=== PATIENT | female | born 1980 | race Caucasian/White ===

== ENCOUNTER 2017-03-30 00:10 | Inpatient (IN) | payer BC ==
--- NOTE | 2017-03-29 21:58 | EDPHY ---
H & P Stated Complaint: general abdominal pain x 2 days Time Seen by Provider: 03/29/17 21:17 HPI/ROS: CHIEF COMPLAINT: Abdominal pain History by patient HISTORY OF PRESENT ILLNESS: 37-year-old otherwise healthy woman presents complaining of 2 days of upper and periumbilical abdominal pain which she describes as sharp and severe and crampy. However now it is constant. When it 1st began 2 days ago she had multiple episodes of vomiting followed by multiple episodes of watery, nonbloody diarrhea. She has also had associated fever. She does also complain of some pain in her low back. She had an IUD removed 2 weeks ago and a Depakote shot at that time and she has had ongoing vaginal bleeding. She denies any dysuria, urgency frequency or hematuria. Pain is worse when she moves around or changes position. She has been unable to eat because it makes things worse. She has no appetite. She denies any recent ill contacts. REVIEW OF SYSTEMS: As in HPI, and all other systems reviewed and are negative Source: Patient - Personal History LMP (Females 10-55): Now Current Tetanus/Diphtheria Vaccine: No Current Tetanus Diphtheria and Acellular Pertussis (TDAP): No - Medical/Surgical History Hx Asthma: No Hx Chronic Respiratory Disease: No Hx Diabetes: No Hx Cardiac Disease: No Hx Renal Disease: No Hx Cirrhosis: No Hx Alcoholism: No Hx HIV/AIDS: No Hx Splenectomy or Spleen Trauma: No Other PMH: no pmh - Social History Smoking Status: Former smoker - Physical Exam Exam: General Appearance: Alert, nontoxic-appearing. Eyes: Pupils equal and round no pallor or injection. ENT, Mouth: Mucous membranes moist. Respiratory: Normal, effort, lungs are clear to auscultation. No wheezes, rales or rhonchi. Cardiovascular: Regular rate and rhythm. S1, S2, no murmurs, gallops or rubs appreciated Gastrointestinal: bowel sounds present, Abdomen is soft and diffusely tender mostly in the right lower quadrant, no palpable mass masses, no peritoneal signs Back: Positive Right CVA tenderness, no bony tenderness Neurological: Awake, alert and oriented x 3, no pronator drift, normal gait, no pronator drift Skin: Warm and dry, no rashes. Musculoskeletal: No deformities or tenderness. Extremitie:s full range of motion, no edema Psychiatric: Patient has normal affect, there is no agitation. Constitutional: Initial Vital Signs Temperature (C) 37.5 C 03/29/17 21:10 Heart Rate 112 H 03/29/17 21:10 Respiratory Rate 18 03/29/17 21:10 Blood Pressure 129/79 H 03/29/17 21:10 O2 Sat (%) 98 03/29/17 21:10 O2 Delivery Mode Room Air Allergies/Adverse Reactions: No Known Allergies Allergy (Unverified 03/29/17 21:15) Home Medications: Medication Instructions Recorded NK [No Known Home Meds] 03/29/17 Medical Decision Making ED Course/Re-evaluation: 37-year-old woman presents with acute onset of abdominal pain, vomiting and diarrhea and now with persistent severe abdominal pain and tenderness and fever at home. Patient was given IV Zofran and Toradol with improvement in her symptoms but persistent tenderness on exam especially in the right lower quadrant and suprapubic area. Urinalysis showed blood consistent with patient being on her menses and no evidence of infection. She was not . Patient's white blood cell count was elevated at 26. Patient's sodium was low. Given her exam and elevated blood cell count was concerned about appendicitis or other intra-abdominal process and a CT abdomen pelvis was obtained. CT of the abdomen pelvis revealed a acute appendicitis with rupture and abscess. Patient was started on IV Unasyn. I discussed the case with the radiologist lead electrical controls engineer. I then discussed the case with Dr. Wero rodas on- call for general surgery who requested the patient be transferred to [facility] at [facility] for further evaluation. I also discussed the case with Dr. Cota in the [facility] Emergency Department. I discussed the diagnosis plan with the patient and her . They prefer to go by private car. She is hemodynamically stable. She will be transferred to [facility] Emergency Department for further evaluation and care. - Data Points Laboratory Results: Laboratory Results 03/29/17 21:38 03/29/17 21:38 03/29/17 03/29/17 03/29/17 21:38 21:38 21:20 WBC 26.16 10^3/uL H 10^3/uL (3.80-9.50) RBC 3.83 10^6/uL L 10^6/uL (4.18-5.33) Hgb 11.0 g/dL L g/dL (12.6-16.3) Hct 32.0 % L % (38.0-47.0) MCV 83.6 fL fL (81.5-99.8) MCH 28.7 pg pg (27.9-34.1) MCHC 34.4 g/dL g/dL (32.4-36.7) RDW 12.9 % % (11.5-15.2) Plt Count 418 10^3/uL H 10^3/uL (150-400) MPV 8.7 fL fL (8.7-11.7) Neut % (Auto) Not Reported Lymph % (Auto) Not Reported [place] % (Auto) Not Reported Eos % (Auto) Not Reported Baso % (Auto) Not Reported Nucleat RBC Rel Count 0.0 % % (0.0-0.2) Absolute Neuts (auto) Not Reported Absolute Lymphs (auto) Not Reported Absolute Monos (auto) Not Reported Absolute Eos (auto) Not Reported Absolute Basos (auto) Not Reported Absolute Nucleated RBC 0.00 10^3/uL 10^3/uL (0-0.01) Immature Gran % Not Reported Seg Neutrophils % 87 % % Band Neutrophils % 2 % % Lymphocytes % 6 % % Monocytes % 5 % % Immature Gran # Not Reported Absolute Seg Neuts 22.8 K/MM3 H K/MM3 (1.8-7) Absolute Band Neuts 0.5 K/MM3 K/MM3 (0-0.7) Absolute Lymphocytes 1.6 K/mm3 K/mm3 (1.0-4.8) Absolute Monocytes 1.3 K/mm3 H K/mm3 (0-0.8) Platelet Estimate INCREASED H (ADEQ) Sodium 132 mEq/L L mEq/L (134-144) Potassium 4.1 mEq/L mEq/L (3.5-5.2) Chloride 97 mEq/L mEq/L (97-110) Carbon Dioxide 25 mEq/l mEq/l (22-31) Anion Gap 10 mEq/L mEq/L (8-16) BUN 7 mg/dL mg/dL (7-23) Creatinine 0.6 mg/dL mg/dL (0.6-1.0) Estimated GFR > 60 Glucose 138 mg/dL H mg/dL (70-100) Calcium 9.0 mg/dL mg/dL (8.5-10.4) Total Bilirubin 0.7 mg/dL mg/dL (0.1-1.4) Conjugated Bilirubin 0.4 mg/dL mg/dL (0.0-0.5) Unconjugated Bilirubin 0.3 mg/dL mg/dL (0.0-1.1) AST 15 IU/L IU/L (14-46) ALT 27 IU/L IU/L (9-52) Alkaline Phosphatase 88 IU/L IU/L (38-126) Total Protein 6.4 g/dL g/dL (6.3-8.2) Albumin 3.3 g/dL L g/dL (3.5-5.0) Lipase 74 IU/L IU/L (23-300) Urine Color Urine Appearance Urine pH Ur Specific [place] Urine Protein Urine Ketones Urine Blood Urine Nitrate Urine Bilirubin Urine Urobilinogen Ur Leukocyte Esterase Urine RBC Urine WBC Ur Epithelial Cells Amorphous Sediment Urine Bacteria Hyaline Casts Urine Glucose Urine Test NEGATIVE 03/29/17 21:20 WBC RBC Hgb Hct MCV MCH MCHC RDW Plt Count MPV Neut % (Auto) Lymph % (Auto) [place] % (Auto) Eos % (Auto) Baso % (Auto) Nucleat RBC Rel Count Absolute Neuts (auto) Absolute Lymphs (auto) Absolute Monos (auto) Absolute Eos (auto) Absolute Basos (auto) Absolute Nucleated RBC Immature Gran % Seg Neutrophils % Band Neutrophils % Lymphocytes % Monocytes % Immature Gran # Absolute Seg Neuts Absolute Band Neuts Absolute Lymphocytes Absolute Monocytes Platelet Estimate Sodium Potassium Chloride Carbon Dioxide Anion Gap BUN Creatinine Estimated GFR Glucose Calcium Total Bilirubin Conjugated Bilirubin Unconjugated Bilirubin AST ALT Alkaline Phosphatase Total Protein Albumin Lipase Urine Color YELLOW Urine Appearance CLEAR Urine pH 6.0 (5.0-7.5) Ur Specific [place] 1.010 (1.002-1.030) Urine Protein 2+ H (NEGATIVE) Urine Ketones NEGATIVE (NEGATIVE) Urine Blood 3+ H (NEGATIVE) Urine Nitrate NEGATIVE (NEGATIVE) Urine Bilirubin NEGATIVE (NEGATIVE) Urine Urobilinogen 0.2 EU EU (0.2-1.0) Ur Leukocyte Esterase NEGATIVE (NEGATIVE) Urine RBC 50-182 /hpf H /hpf (0-3) Urine WBC 0-1 /hpf /hpf (0-3) Ur Epithelial Cells 2+ /lpf H /lpf (NONE-1+) Amorphous Sediment 2+ /hpf H /hpf (NONE-1+) Urine Bacteria TRACE /hpf H /hpf (NONE SEEN) Hyaline Casts 1-3 /lpf H /lpf (0-1) Urine Glucose NEGATIVE (NEGATIVE) Urine Test Medications Given: Ampicillin Sodium/Sulbactam (Sodium 3 gm/ Sodium Chloride) 100 mls @ 200 mls/ hr IV EDNOW ONE PRN Reason: Protocol Stop: 03/29/17 23:37 Last Admin: 03/29/17 23:14 Dose: 100 mls Discontinued Medications Sodium Chloride (Ns) 1,000 mls @ 0 mls/hr IV ONCE ONE PRN Reason: Wide Open Stop: 03/29/17 21:33 Last Admin: 03/29/17 21:33 Dose: 1,000 mls Sodium Chloride (Ns) 1,000 mls @ 0 mls/hr IV ONCE ONE PRN Reason: Wide Open Stop: 03/29/17 22:29 Last Admin: 03/29/17 22:41 Dose: 1,000 mls Ketorolac Tromethamine (Toradol) 15 mg IVP EDNOW ONE Stop: 03/29/17 21:53 Last Admin: 03/29/17 21:58 Dose: 15 mg Ondansetron HCl (Zofran) 4 mg IVP EDNOW ONE Stop: 03/29/17 21:53 Last Admin: 03/29/17 21:58 Dose: 4 mg Departure - Departure Disposition: [facility] ER Clinical Impression: Acute appendicitis Qualifiers: Acute appendicitis type: with generalized peritonitis Qualified Code(s): K35.2 - Acute appendicitis with generalized peritonitis Condition: Fair Additional Instructions: You were seen by Dr. Janny Robertson today. Go directly to the [facility] emergency department. They will be expecting you. Dr. Wero Franz the general surgeon will see you there. Referrals: NONE *PRIMARY CARE P,. [Primary Care Provider] - As per Instructions
--- NOTE | 2017-03-29 21:58 | EDPHY ---
H & P Stated Complaint: general abdominal pain x 2 days Time Seen by Provider: 03/29/17 21:17 HPI/ROS: CHIEF COMPLAINT: Abdominal pain History by patient HISTORY OF PRESENT ILLNESS: 37-year-old otherwise healthy woman presents complaining of 2 days of upper and periumbilical abdominal pain which she describes as sharp and severe and crampy. However now it is constant. When it 1st began 2 days ago she had multiple episodes of vomiting followed by multiple episodes of watery, nonbloody diarrhea. She has also had associated fever. She does also complain of some pain in her low back. She had an IUD removed 2 weeks ago and a Depakote shot at that time and she has had ongoing vaginal bleeding. She denies any dysuria, urgency frequency or hematuria. Pain is worse when she moves around or changes position. She has been unable to eat because it makes things worse. She has no appetite. She denies any recent ill contacts. REVIEW OF SYSTEMS: As in HPI, and all other systems reviewed and are negative Source: Patient - Personal History LMP (Females 10-55): Now Current Tetanus/Diphtheria Vaccine: No Current Tetanus Diphtheria and Acellular Pertussis (TDAP): No - Medical/Surgical History Hx Asthma: No Hx Chronic Respiratory Disease: No Hx Diabetes: No Hx Cardiac Disease: No Hx Renal Disease: No Hx Cirrhosis: No Hx Alcoholism: No Hx HIV/AIDS: No Hx Splenectomy or Spleen Trauma: No Other PMH: no pmh - Social History Smoking Status: Former smoker - Physical Exam Exam: General Appearance: Alert, nontoxic-appearing. Eyes: Pupils equal and round no pallor or injection. ENT, Mouth: Mucous membranes moist. Respiratory: Normal, effort, lungs are clear to auscultation. No wheezes, rales or rhonchi. Cardiovascular: Regular rate and rhythm. S1, S2, no murmurs, gallops or rubs appreciated Gastrointestinal: bowel sounds present, Abdomen is soft and diffusely tender mostly in the right lower quadrant, no palpable mass masses, no peritoneal signs Back: Positive Right CVA tenderness, no bony tenderness Neurological: Awake, alert and oriented x 3, no pronator drift, normal gait, no pronator drift Skin: Warm and dry, no rashes. Musculoskeletal: No deformities or tenderness. Extremitie:s full range of motion, no edema Psychiatric: Patient has normal affect, there is no agitation. Constitutional: Initial Vital Signs Temperature (C) 37.5 C 03/29/17 21:10 Heart Rate 112 H 03/29/17 21:10 Respiratory Rate 18 03/29/17 21:10 Blood Pressure 129/79 H 03/29/17 21:10 O2 Sat (%) 98 03/29/17 21:10 O2 Delivery Mode Room Air Allergies/Adverse Reactions: No Known Allergies Allergy (Unverified 03/29/17 21:15) Home Medications: Medication Instructions Recorded NK [No Known Home Meds] 03/29/17 Medical Decision Making ED Course/Re-evaluation: 37-year-old woman presents with acute onset of abdominal pain, vomiting and diarrhea and now with persistent severe abdominal pain and tenderness and fever at home. Patient was given IV Zofran and Toradol with improvement in her symptoms but persistent tenderness on exam especially in the right lower quadrant and suprapubic area. Urinalysis showed blood consistent with patient being on her menses and no evidence of infection. She was not . Patient's white blood cell count was elevated at 26. Patient's sodium was low. Given her exam and elevated blood cell count was concerned about appendicitis or other intra-abdominal process and a CT abdomen pelvis was obtained. CT of the abdomen pelvis revealed a acute appendicitis with rupture and abscess. Patient was started on IV Unasyn. I discussed the case with the radiologist data processing systems consultant. I then discussed the case with Dr. Wero rodas on- call for general surgery who requested the patient be transferred to [facility] at [facility] for further evaluation. I also discussed the case with Dr. Cota in the [facility] Emergency Department. I discussed the diagnosis plan with the patient and her . They prefer to go by private car. She is hemodynamically stable. She will be transferred to [facility] Emergency Department for further evaluation and care. - Data Points Laboratory Results: Laboratory Results 03/29/17 21:38 03/29/17 21:38 03/29/17 03/29/17 03/29/17 21:38 21:38 21:20 WBC 26.16 10^3/uL H 10^3/uL (3.80-9.50) RBC 3.83 10^6/uL L 10^6/uL (4.18-5.33) Hgb 11.0 g/dL L g/dL (12.6-16.3) Hct 32.0 % L % (38.0-47.0) MCV 83.6 fL fL (81.5-99.8) MCH 28.7 pg pg (27.9-34.1) MCHC 34.4 g/dL g/dL (32.4-36.7) RDW 12.9 % % (11.5-15.2) Plt Count 418 10^3/uL H 10^3/uL (150-400) MPV 8.7 fL fL (8.7-11.7) Neut % (Auto) Not Reported Lymph % (Auto) Not Reported [place] % (Auto) Not Reported Eos % (Auto) Not Reported Baso % (Auto) Not Reported Nucleat RBC Rel Count 0.0 % % (0.0-0.2) Absolute Neuts (auto) Not Reported Absolute Lymphs (auto) Not Reported Absolute Monos (auto) Not Reported Absolute Eos (auto) Not Reported Absolute Basos (auto) Not Reported Absolute Nucleated RBC 0.00 10^3/uL 10^3/uL (0-0.01) Immature Gran % Not Reported Seg Neutrophils % 87 % % Band Neutrophils % 2 % % Lymphocytes % 6 % % Monocytes % 5 % % Immature Gran # Not Reported Absolute Seg Neuts 22.8 K/MM3 H K/MM3 (1.8-7) Absolute Band Neuts 0.5 K/MM3 K/MM3 (0-0.7) Absolute Lymphocytes 1.6 K/mm3 K/mm3 (1.0-4.8) Absolute Monocytes 1.3 K/mm3 H K/mm3 (0-0.8) Platelet Estimate INCREASED H (ADEQ) Sodium 132 mEq/L L mEq/L (134-144) Potassium 4.1 mEq/L mEq/L (3.5-5.2) Chloride 97 mEq/L mEq/L (97-110) Carbon Dioxide 25 mEq/l mEq/l (22-31) Anion Gap 10 mEq/L mEq/L (8-16) BUN 7 mg/dL mg/dL (7-23) Creatinine 0.6 mg/dL mg/dL (0.6-1.0) Estimated GFR > 60 Glucose 138 mg/dL H mg/dL (70-100) Calcium 9.0 mg/dL mg/dL (8.5-10.4) Total Bilirubin 0.7 mg/dL mg/dL (0.1-1.4) Conjugated Bilirubin 0.4 mg/dL mg/dL (0.0-0.5) Unconjugated Bilirubin 0.3 mg/dL mg/dL (0.0-1.1) AST 15 IU/L IU/L (14-46) ALT 27 IU/L IU/L (9-52) Alkaline Phosphatase 88 IU/L IU/L (38-126) Total Protein 6.4 g/dL g/dL (6.3-8.2) Albumin 3.3 g/dL L g/dL (3.5-5.0) Lipase 74 IU/L IU/L (23-300) Urine Color Urine Appearance Urine pH Ur Specific [place] Urine Protein Urine Ketones Urine Blood Urine Nitrate Urine Bilirubin Urine Urobilinogen Ur Leukocyte Esterase Urine RBC Urine WBC Ur Epithelial Cells Amorphous [place] Urine Bacteria Hyaline Casts Urine Glucose Urine Test NEGATIVE 03/29/17 21:20 WBC RBC Hgb Hct MCV MCH MCHC RDW Plt Count MPV Neut % (Auto) Lymph % (Auto) [place] % (Auto) Eos % (Auto) Baso % (Auto) Nucleat RBC Rel Count Absolute Neuts (auto) Absolute Lymphs (auto) Absolute Monos (auto) Absolute Eos (auto) Absolute Basos (auto) Absolute Nucleated RBC Immature Gran % Seg Neutrophils % Band Neutrophils % Lymphocytes % Monocytes % Immature Gran # Absolute Seg Neuts Absolute Band Neuts Absolute Lymphocytes Absolute Monocytes Platelet Estimate Sodium Potassium Chloride Carbon Dioxide Anion Gap BUN Creatinine Estimated GFR Glucose Calcium Total Bilirubin Conjugated Bilirubin Unconjugated Bilirubin AST ALT Alkaline Phosphatase Total Protein Albumin Lipase Urine Color YELLOW Urine Appearance CLEAR Urine pH 6.0 (5.0-7.5) Ur Specific [place] 1.010 (1.002-1.030) Urine Protein 2+ H (NEGATIVE) Urine Ketones NEGATIVE (NEGATIVE) Urine Blood 3+ H (NEGATIVE) Urine Nitrate NEGATIVE (NEGATIVE) Urine Bilirubin NEGATIVE (NEGATIVE) Urine Urobilinogen 0.2 EU EU (0.2-1.0) Ur Leukocyte Esterase NEGATIVE (NEGATIVE) Urine RBC 50-182 /hpf H /hpf (0-3) Urine WBC 0-1 /hpf /hpf (0-3) Ur Epithelial Cells 2+ /lpf H /lpf (NONE-1+) Amorphous Sediment 2+ /hpf H /hpf (NONE-1+) Urine Bacteria TRACE /hpf H /hpf (NONE SEEN) Hyaline Casts 1-3 /lpf H /lpf (0-1) Urine Glucose NEGATIVE (NEGATIVE) Urine Test Medications Given: Ampicillin Sodium/Sulbactam (Sodium 3 gm/ Sodium Chloride) 100 mls @ 200 mls/ hr IV EDNOW ONE PRN Reason: Protocol Stop: 03/29/17 23:37 Last Admin: 03/29/17 23:14 Dose: 100 mls Discontinued Medications Sodium Chloride (Ns) 1,000 mls @ 0 mls/hr IV ONCE ONE PRN Reason: Wide Open Stop: 03/29/17 21:33 Last Admin: 03/29/17 21:33 Dose: 1,000 mls Sodium Chloride (Ns) 1,000 mls @ 0 mls/hr IV ONCE ONE PRN Reason: Wide Open Stop: 03/29/17 22:29 Last Admin: 03/29/17 22:41 Dose: 1,000 mls Ketorolac Tromethamine (Toradol) 15 mg IVP EDNOW ONE Stop: 03/29/17 21:53 Last Admin: 03/29/17 21:58 Dose: 15 mg Ondansetron HCl (Zofran) 4 mg IVP EDNOW ONE Stop: 03/29/17 21:53 Last Admin: 03/29/17 21:58 Dose: 4 mg Departure - Departure Disposition: [facility] ER Clinical Impression: Acute appendicitis Qualifiers: Acute appendicitis type: with generalized peritonitis Qualified Code(s): K35.2 - Acute appendicitis with generalized peritonitis Condition: Fair Additional Instructions: You were seen by Dr. Janny Robertson today. Go directly to the [facility] emergency department. They will be expecting you. Dr. Wero Franz the general surgeon will see you there. Referrals: NONE *PRIMARY CARE P,. [Primary Care Provider] - As per Instructions
[2017-03-29 22:05] LABS: PLATELET COUNT 418 10^3/uL (150-400)
[~2017-03-30 00:10] MED LIST: AMPICILLIN/SULBACTAM 3 GM in NS 100 ML IV ONE; IOPAMIDOL (ISOVUE-300) 100 ML BTL ONE; KETOROLAC 30 MG/1 ML SDV IVP ONE; NS 1,000 ML IV ONE; ONDANSETRON 4 MG/2 ML VIAL IVP ONE; ONDANSETRON 4 MG/2 ML VIAL ONE
--- NOTE | 2017-03-30 00:30 | EDPHY ---
ED Progress Note Narrative: 12:30 a.m.- The patient arrived in the emergency department via private car from the [facility]. Vital signs are normal. Dr. Franz from Trauma surgery is currently in the department evaluating the patient. He plans to admit the patient overnight and will consult with interventional Radiology to determine if fluid collection can be drained.
--- NOTE | 2017-03-30 00:30 | EDPHY ---
ED Progress Note Narrative: 12:30 a.m.- The patient arrived in the emergency department via private car from the [facility]. Vital signs are normal. Dr. Franz from Trauma surgery is currently in the department evaluating the patient. He plans to admit the patient overnight and will consult with interventional Radiology to determine if fluid collection can be drained.
--- NOTE | 2017-03-30 01:27 | GHP ---
[f rep st] HISTORY AND PHYSICAL DATE OF ADMISSION: 03/30/2017 CHIEF COMPLAINT: Pelvic pain. HISTORY OF PRESENT ILLNESS: A 37-year-old female, began with right lower quadrant and pelvic pain 48 hours ago, went to [facility] where a CT scan was done showing ruptured appendicitis w ith appendicolith and a pelvic abscess surrounding the uterus. ALLERGIES: Penicillin. MEDICATIONS: Currently none. She does receive a Depakote shot for control. An IUD was remove d several weeks ago. PAST SURGICAL HISTORY: None. SOCIAL HISTORY: Nonsmoker. Alcohol use occasional. 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 Just . REVIEW OF SYSTEMS: Denies asthma, heart trouble, diabetes, epilepsy, rheumatic fever. PHYSICAL EXAMINATION: HEENT: No scleral icterus. Pharynx clear. NECK: Supple without adenopathy. LUNGS: Clear. HEART: Normal S1, S2 without murmur. Heart rate is 88, blood pressure is normal. ABDOMEN: Soft in the upper portions, but tender in the right lower quadrant, left lower quadrant currie prapubically. PELVIC: Deferred. RECTAL: Deferred. LABORATORY DATA: Include a white blood count 26,000. Electrolytes are normal. CT scan is discussed above. ASSESSMENT: Ruptured appendicitis, several appendicoliths seen, pelvic abscess. PLAN: CT-guided drainage of pelvic abscess. This may not completely resolve her problem, and she mi ght require an operation. She is not taken to surgery emergently tonight, as given the abscess and o verall inflammation in the pelvis, it would likely be a fairly big operation with potential risks of organ injury and an attempt to CT-guided drainage and IV antibiotics is reasonable. She understands that this plan might not resolve all of her symptoms and a laparotomy will be necessary. /[id number]/MODL
--- NOTE | 2017-03-30 01:27 | GHP ---
[f rep st] HISTORY AND PHYSICAL DATE OF ADMISSION: 03/30/2017 CHIEF COMPLAINT: Pelvic pain. HISTORY OF PRESENT ILLNESS: A 37-year-old female, began with right lower quadrant and pelvic pain 48 hours ago, went to [facility] where a CT scan was done showing ruptured appendicitis w ith appendicolith and a pelvic abscess surrounding the uterus. ALLERGIES: Penicillin. MEDICATIONS: Currently none. She does receive a Depakote shot for control. An IUD was remove d several weeks ago. PAST SURGICAL HISTORY: None. SOCIAL HISTORY: Nonsmoker. Alcohol use occasional. 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 Just . REVIEW OF SYSTEMS: Denies asthma, heart trouble, diabetes, epilepsy, rheumatic fever. PHYSICAL EXAMINATION: HEENT: No scleral icterus. Pharynx clear. NECK: Supple without adenopathy. LUNGS: Clear. HEART: Normal S1, S2 without murmur. Heart rate is 88, blood pressure is normal. ABDOMEN: Soft in the upper portions, but tender in the right lower quadrant, left lower quadrant currie prapubically. PELVIC: Deferred. RECTAL: Deferred. LABORATORY DATA: Include a white blood count 26,000. Electrolytes are normal. CT scan is discussed above. ASSESSMENT: Ruptured appendicitis, several appendicoliths seen, pelvic abscess. PLAN: CT-guided drainage of pelvic abscess. This may not completely resolve her problem, and she mi ght require an operation. She is not taken to surgery emergently tonight, as given the abscess and o verall inflammation in the pelvis, it would likely be a fairly big operation with potential risks of organ injury and an attempt to CT-guided drainage and IV antibiotics is reasonable. She understands that this plan might not resolve all of her symptoms and a laparotomy will be necessary. /[id number]/MODL
[2017-03-30] MEDS: ERTAPENEM 1 GM in NS 100 ML IV SCH ×2 (02:00→09:29)
[2017-03-30 06:39] LABS: INR 1.35 (0.83-1.16); PROTIME(PATIENT) 16.7 SEC (12.0-15.0)
[2017-03-30] MEDS ORDERED: NALOXONE HCL 0.4 MG/ML INJ ONE (10:34)
[2017-03-30] MEDS ORDERED: FLUMAZENIL 0.5 MG/5 ML MDV IVP ONE (10:34)
[2017-03-30] MEDS ORDERED: MIDAZOLAM 2 MG/2 ML VIAL ONE (10:35)
[2017-03-30] MEDS ORDERED: fentaNYL 100 MCG/2 ML INJ ONE (10:35)
[2017-03-30] MEDS ORDERED: IOPAMIDOL (ISOVUE-300) 100 ML BTL ONE (11:30)
[2017-03-30] MEDS: KETOROLAC 15 MG/1 ML SDV IVP PRN ×2 (16:34→22:36)
[2017-03-30] MEDS: ONDANSETRON 4 MG/2 ML VIAL IVP PRN (16:34)
--- NOTE | 2017-03-30 17:02 | ASMTCASEMG ---
Living Arrangements What is your living Answers: Unknown arrangement? Who do you live with? Discharge Plan Comments Coordination Status Comments Notes: Patient had abcesses drained today in her abdomen. Patients discharge needs still uncertain at this time. Date Signed: 03/30/2017 05:01 PM Electronically Signed By:ABAD Hoff
[2017-03-30] MEDS: LR 1,000 ML IV SCH (22:14)
[2017-03-30] MEDS ORDERED: ACETAMINOPHEN 325 MG TAB PO PRN (23:51)
--- NOTE | 2017-03-31 07:09 | SOAPPROG ---
SOAP Progress Note Assessment/Plan: Assessment: Plan: Subjective: co headache- less abd pain. small amount of flatus. vss, 37 abd soft, tender in suprapubic area wbc down from 26 k to 12 cont antibioiitcs.. Objective: Vital Signs Temp Pulse Resp BP Pulse Ox 37.3 C 102 H 16 144/98 H 96 03/31/17 03:54 03/31/17 03:54 03/31/17 03:54 03/31/17 03:54 03/31/17 03:54 Microbiology 03/30/17 12:00 Gram Stain - Final Pelvis - Aspirate Laboratory Results 03/31/17 04:38 03/30/17 03/31/17 04/01/17 05:59 05:59 05:59 Intake Total 521 986 Output Total 65 Balance 521 921 PT 16.7 SEC (12.0-15.0) H 03/30/17 06:25 INR 1.35 (0.83-1.16) H 03/30/17 06:25 ICD10 Worksheet Patient Problems: Problems Problem Status Onset Acute appendicitis Acute
[2017-03-31] MEDS: KETOROLAC 15 MG/1 ML SDV IVP PRN ×2 (07:43→18:24)
[2017-03-31] MEDS: LR 1,000 ML IV SCH ×2 (08:20→19:50)
[2017-03-31] MEDS: ERTAPENEM 1 GM in NS 100 ML IV SCH (09:39)
[2017-03-31] MEDS: ENOXAPARIN 40 MG/0.4 ML SYR SC SCH (09:41)
--- NOTE | 2017-03-31 17:08 | ASMTCMCOM ---
CM Note CM Note Notes: STilll unknown if patient will need home IV antibiotics. Yohana here from [facility] and will run benefits if patient should need IV antibiotics on discharge. Patient improving but still unknown whendischarge will occur. Case management will continue to follow. Date Signed: 03/31/2017 05:08 PM Electronically Signed By:ABAD Hoff
--- NOTE | 2017-03-31 17:08 | ASMTCMCOM ---
CM Note CM Note Notes: STilll unknown if patient will need home IV antibiotics. Yohana here from [facility] and will run benefits if patient should need IV antibiotics on discharge. Patient improving but still unknown whendischarge will occur. Case management will continue to follow. Date Signed: 03/31/2017 05:08 PM Electronically Signed By:ABAD Hoff
--- NOTE | 2017-03-31 17:14 | ASMTCMCOM ---
CM Note CM Note Notes: Still unknown what patients needs will be on discharge. Patient very uncomfortable and is very distended. Patient does not have bowel function at this time. Will wait to see what is decided in the morning as to additional interventions. Case management will continue to follow. Date Signed: 03/31/2017 05:13 PM Electronically Signed By:ABAD Hoff
--- NOTE | 2017-03-31 17:49 | ASMTCMCOM ---
CM Note CM Note Notes: Prior C/M assessment note made in error and in wrong chart. Prior note was intended for patient chart N [id number]. Date Signed: 03/31/2017 05:48 PM Electronically Signed By:ABAD Hoff
--- NOTE | 2017-03-31 17:49 | ASMTCMCOM ---
CM Note CM Note Notes: Prior C/M assessment note made in error and in wrong chart. Prior note was intended for patient chart N [id number]. Date Signed: 03/31/2017 05:48 PM Electronically Signed By:ABAD Hoff
--- NOTE | 2017-03-31 17:49 | ASMTCMCOM ---
CM Note CM Note Notes: Prior C/M assessment note made in error and in wrong chart. Prior note was intended for patient chart N [id number]. Date Signed: 03/31/2017 05:48 PM Electronically Signed By:ABAD Hoff
[2017-04-01] MEDS: KETOROLAC 15 MG/1 ML SDV IVP PRN ×3 (01:36→19:54)
[2017-04-01] MEDS: LR 1,000 ML IV SCH (04:02)
--- NOTE | 2017-04-01 07:12 | SOAPPROG ---
SOAP Progress Note Assessment/Plan: Assessment: Plan: Subjective: vss, 37.4 drain output minimal. abd soft, much less pain. will check cbc in am. cont clear liq diet until having stools. re image in 1-2 days. clearly improving.with non opeative management Objective: Vital Signs Temp Pulse Resp BP Pulse Ox 37 C 79 16 135/81 H 95 04/01/17 04:00 04/01/17 04:00 04/01/17 04:00 04/01/17 04:00 04/01/17 04:00 Microbiology 03/30/17 12:00 Gram Stain - Final Pelvis - Aspirate Laboratory Results 03/31/17 04:38 03/31/17 04/01/17 04/02/17 05:59 05:59 05:59 Intake Total 986 2402 Output Total 65 5 Balance 921 2397 PT 16.7 SEC (12.0-15.0) H 03/30/17 06:25 INR 1.35 (0.83-1.16) H 03/30/17 06:25 ICD10 Worksheet Patient Problems: Problems Problem Status Onset Acute appendicitis Acute
[2017-04-01] MEDS ORDERED: LR 1,000 ML IV SCH (07:30)
[2017-04-01] MEDS: ENOXAPARIN 40 MG/0.4 ML SYR SC SCH (10:15)
[2017-04-01] MEDS: ERTAPENEM 1 GM in NS 100 ML IV SCH (10:19)
[2017-04-01] MEDS: ONDANSETRON 4 MG/2 ML VIAL IVP PRN ×2 (12:51→19:38)
--- NOTE | 2017-04-01 12:51 | ASMTCMCOM ---
CM Note CM Note Notes: Rec'd call from Yohana at [facility] w/pt's benefits info in case pt needs HI. It is not clear yet if pt will need to go home on IV abx's. Met w/pt and shared benefits info and pt is in agreement if she should need IV ABX's at home and would be fine to learn how to give to self. Pt lives at home w/. [employer] w/f. Date Signed: 04/01/2017 12:50 PM Electronically Signed By:Linda Fam RN
--- NOTE | 2017-04-01 12:51 | ASMTCMCOM ---
CM Note CM Note Notes: Rec'd call from Yohana at [facility] w/pt's benefits info in case pt needs HI. It is not clear yet if pt will need to go home on IV abx's. Met w/pt and shared benefits info and pt is in agreement if she should need IV ABX's at home and would be fine to learn how to give to self. Pt lives at home w/. [employer] w/f. Date Signed: 04/01/2017 12:50 PM Electronically Signed By:Linda Fam RN
--- NOTE | 2017-04-02 07:28 | SOAPPROG ---
SOAP Progress Note Assessment/Plan: Assessment: Plan: Subjective: sleeping better, less pain. no stools abd soft, mildly teder rlq afebrile wbc 10 k cultures show a fusibacterium adcess: improving, normalizing wbc, plan check ct scan tomorrow. likely advance diet tomorrow. drainage still purulent- will leave in until lclear, Objective: Vital Signs Temp Pulse Resp BP Pulse Ox 37.1 C 86 16 137/79 H 95 04/02/17 03:23 04/02/17 03:23 04/02/17 03:23 04/02/17 03:23 04/02/17 03:23 Microbiology 03/30/17 12:00 Gram Stain - Final Pelvis - Aspirate Laboratory Results 04/02/17 04:47 04/01/17 04/02/17 04/03/17 05:59 05:59 05:59 Intake Total 2402 1350 Output Total 5 Balance 2397 1350 PT 16.7 SEC (12.0-15.0) H 03/30/17 06:25 INR 1.35 (0.83-1.16) H 03/30/17 06:25 ICD10 Worksheet Patient Problems: Problems Problem Status Onset Acute appendicitis Acute
[2017-04-02] MEDS: KETOROLAC 15 MG/1 ML SDV IVP PRN ×3 (08:30→21:46)
[2017-04-02] MEDS: ERTAPENEM 1 GM in NS 100 ML IV SCH (09:54)
[2017-04-02] MEDS: ENOXAPARIN 40 MG/0.4 ML SYR SC SCH (09:55)
[2017-04-02] MEDS ORDERED: CALCIUM CARBONATE 500 MG CHEWABLE TAB PO PRN (23:57)
[2017-04-03] MEDS: KETOROLAC 15 MG/1 ML SDV IVP PRN ×3 (08:01→20:41)
[2017-04-03] MEDS: ENOXAPARIN 40 MG/0.4 ML SYR SC SCH (08:01)
[2017-04-03] MEDS: ERTAPENEM 1 GM in NS 100 ML IV SCH (08:02)
--- NOTE | 2017-04-03 08:14 | SOAPPROG ---
SOAP Progress Note Assessment/Plan: Assessment: Plan: Subjective: vss, af abd soft. minimal drainage willc heck ct prior to removing drain. advance diet, Objective: Vital Signs Temp Pulse Resp BP Pulse Ox 36.9 C 72 16 127/81 H 95 04/03/17 04:00 04/03/17 04:00 04/03/17 04:00 04/03/17 04:00 04/03/17 04:00 Microbiology 03/30/17 12:00 Gram Stain - Final Pelvis - Aspirate Laboratory Results 04/02/17 04:47 04/02/17 04/03/17 04/04/17 05:59 05:59 05:59 Intake Total 1350 1520 Output Total 15 Balance 1350 1505 PT 16.7 SEC (12.0-15.0) H 03/30/17 06:25 INR 1.35 (0.83-1.16) H 03/30/17 06:25 ICD10 Worksheet Patient Problems: Problems Problem Status Onset Acute appendicitis Acute
[2017-04-03] MEDS ORDERED: IOPAMIDOL (ISOVUE-300) 100 ML BTL ONE ×2 (09:59→19:32)
[2017-04-03] MEDS: ONDANSETRON 4 MG/2 ML VIAL IVP PRN (12:12)
[2017-04-03] MEDS ORDERED: fentaNYL 100 MCG/2 ML INJ ONE (17:31)
--- NOTE | 2017-04-04 08:01 | GDS ---
[f rep st] DISCHARGE SUMMARY PRESENT ILLNESS: Patient was admitted with abdominal pain, found to have a ruptured appendix with se veral appendicolith and a pelvic abscess. She was treated medically with IV ertapenem 1 g IV daily. Her white blood count went from 26,000 down to 10,000. She is afebrile, is having stools and tolera ting a diet. Abdomen is soft. The abscess was drained by Interventional Radiology. A followup CT s can showed an un-drained collection approximately 5 cm, but the patient is doing well, and we will co ntinue outpatient IV antibiotics in hopes to avoid emergent larger surgery. The second collection is not amenable to IR drainage. We have recommended an interval appendectomy at 3 months, and I have e xplained to the patient that it is possible that IV antibiotics will fail to control this second ana ection, and she may need surgery for that. FINAL DIAGNOSIS: Ruptured appendicitis with pelvic abscess. OPERATION: IR drainage of pelvic collection, transgluteal. COMPLICATIONS: None. DISPOSITION: Home. DISCHARGE MEDICATIONS: Ertapenem 1 g IV daily for additional 5 days. FOLLOW UP: Follow up with Dr. Franz at the end of the week in the office. Call immediately for fever, chills, nausea, vomiting, worsening pain. /[id number]/MODL
[2017-04-04] MEDS: ERTAPENEM 1 GM in NS 100 ML IV SCH (08:06)
[2017-04-04 08:44] VITALS: BP 128/93; PULSE 76; RESP 14; TEMP 98.4; O2SAT 97
[2017-04-04] MEDS: ENOXAPARIN 40 MG/0.4 ML SYR SC SCH (09:13)
--- NOTE | 2017-04-04 12:00 | PDIAF ---
- Medication Management Discharge Medications: Medications to Continue on Transfer Ibuprofen [Motrin (*)] 200 mg PO DAILY PRN 03/30/17 [Last Taken Unknown] Ertapenem [INVanz] 1 gm IV DAILY AT 10AM 5 Days #5 vial 04/04/17 [Last Taken Unknown] Discharge Medications: Refer to the Discharge Home Medication list for PRN reason. - Orders Services needed: Home Care, Registered Nurse Home Care Face to Face: I certify that this patient was under my care and that I had the required bihu-tc-hybl encounter meeting the encounter requirements on the discharge day. My findings support the fact that the patient is homebound as defined in Home Care Face to Face Continued: CMS Chapter 7 Medicare Benefits Manual 30.1.1 , The condition of the patient is such that there exists a normal inability to leave home and consequently, leaving home would require a considerable and taxing effort. - Follow Up Care Current Providers and Referrals: Wero Franz MD [Medical Doctor] - NONE *PRIMARY CARE P,. [Primary Care Provider] - As per Instructions
--- NOTE | 2017-04-04 12:23 | ASMTCMCOM ---
CM Note CM Note Notes: Pt ready for DC today. Pt will need more 5 more days of IV ABX at DC. [employer] will supply. Pt will likely meet her deductible before [employer] bills but is aware that the cost bfore deductible is $185/day and after is $40/day. [facility] will provide RN. Pt's street address is [address] [place] [address], ,[place] [id number]. Her cell is [phone]. DC orders and meds faxed. Date Signed: 04/04/2017 12:23 PM Electronically Signed By:Carly Rosa LCSW
--- NOTE | 2017-04-04 12:23 | ASMTCMCOM ---
CM Note CM Note Notes: Pt ready for DC today. Pt will need more 5 more days of IV ABX at DC. [employer] will supply. Pt will likely meet her deductible before [employer] bills but is aware that the cost bfore deductible is $185/day and after is $40/day. [facility] will provide RN. Pt's street address is [address] [place] [address], ,[place] [id number]. Her cell is [phone]. DC orders and meds faxed. Date Signed: 04/04/2017 12:23 PM Electronically Signed By:Carly Rosa LCSW
--- NOTE | 2017-04-04 12:23 | ASMTCMCOM ---
CM Note CM Note Notes: Pt ready for DC today. Pt will need more 5 more days of IV ABX at DC. [employer] will supply. Pt will likely meet her deductible before [employer] bills but is aware that the cost bfore deductible is $185/day and after is $40/day. [facility] will provide RN. Pt's street address is [address] [place] [address], ,[place] [id number]. Her cell is [phone]. DC orders and meds faxed. Date Signed: 04/04/2017 12:23 PM Electronically Signed By:Carly Rosa LCSW
--- NOTE | 2017-04-04 12:24 | ASDISCHSUM ---
Discharge Information Plan Status:IV ABX/Infusion Medically Cleared to Leave: Discharge Date: D/C Disposition: ADT D/C Disposition: Projected Discharge Date:04/04/2017 11:00 AM Transportation at D/C: Discharge Delay Reason: Follow-Up Date:04/04/2017 11:00 AM Discharge Slot: Final Diagnosis: Placement Information Referral Type:Home Infusion Referral ID:[id number] Provider Name:[facility] Infusion Services [facility] ([facility] Address 1:[address] Address 2: City:[place] Selection Factors: State:[place] Referral Type:*Home Health Care Services Referral ID:[id number] Provider Name:[facility] 1[address] [facility] [address] Address 2: City:[place] Selection Factors: State:[place] Patient Contact Information Contact Name:WINSTON Relationship: Address: [address] Work Phone: City:[place] [facility] Phone: [facility]/Zip Code:[place] [address] Email: Financial Information Financial Class:HMO and PPO Plans Primary Plan Desc: OUT OF STATE PPO Primary Plan Number:[id number] Secondary Plan Desc: Secondary Plan Number: Assessment Information [facility] Initial CM Assessment Living Arrangements What is your living Answers: Unknown arrangement? Who do you live with? Discharge Plan Comments Coordination Status Comments Notes: Patient had abcesses drained today in her abdomen. Patients discharge needs still uncertain at this time. Date Signed: 03/30/2017 05:01 PM Electronically Signed By:ABAD Hoff [facility] CM Progress Note CM Note CM Note Notes: STilll unknown if patient will need home IV antibiotics. Yohana here from [facility] and will run benefits if patient should need IV antibiotics on discharge. Patient improving but still unknown whendischarge will occur. Case management will continue to follow. Date Signed: 03/31/2017 05:08 PM Electronically Signed By:ABAD Hoff [facility] CM Progress Note CM Note CM Note Notes: Still unknown what patients needs will be on discharge. Patient very uncomfortable and is very distended. Patient does not have bowel function at this time. Will wait to see what is decided in the morning as to additional interventions. Case management will continue to follow. Date Signed: 03/31/2017 05:13 PM Electronically Signed By:ABAD Hoff [facility] CM Progress Note CM Note CM Note Notes: Prior C/M assessment note made in error and in wrong chart. Prior note was intended for patient chart N [id number]. Date Signed: 03/31/2017 05:48 PM Electronically Signed By:ABAD Hoff [facility] Progress Note CM Note CM Note Notes: Rec'd call from Yohana at [facility] w/pt's benefits info in case pt needs HI. It is not clear yet if pt will need to go home on IV abx's. Met w/pt and shared benefits info and pt is in agreement if she should need IV ABX's at home and would be fine to learn how to give to self. Pt lives at home w/. CM w/f. Date Signed: 04/01/2017 12:50 PM Electronically Signed By:Linda Fam RN [facility] CM Progress Note CM Note CM Note Notes: Pt ready for DC today. Pt will need more 5 more days of IV ABX at DC. [employer] will supply. Pt will likely meet her deductible before [employer] bills but is aware that the cost bfore deductible is $185/day and after is $40/day. [facility] will provide RN. Pt's street address is [address] [place] [address] ,[place] [address]. Her cell is [phone]. DC orders and meds faxed. Date Signed: 04/04/2017 12:23 PM Electronically Signed By:Carly Rosa LCSW Intervention Information
--- NOTE | 2017-04-04 12:24 | ASDISCHSUM ---
Discharge Information Plan Status:IV ABX/Infusion Medically Cleared to Leave: Discharge Date: D/C Disposition: ADT D/C Disposition: Projected Discharge Date:04/04/2017 11:00 AM Transportation at D/C: Discharge Delay Reason: Follow-Up Date:04/04/2017 11:00 AM Discharge Slot: Final Diagnosis: Placement Information Referral Type:Home Infusion Referral ID:[id number] Provider Name:[facility] Special[facility] Infusion Services [facility] Address 1:[address] Address 2: City:[place] Selection Factors: State:[place] Referral Type:*Home Health Care Services Referral ID:[id number] Provider Name:[facility] 1[address] [facility] [address] Address 2: City:[place] Selection Factors: State:[place] Patient Contact Information Contact Name:WINSTON Relationship: Address: [address] Work Phone: City:[place] [facility] Phone: [facility]/Zip Code:[place] [address] Email: Financial Information Financial Class:HMO and PPO Plans Primary Plan Desc: OUT OF STATE PPO Primary Plan Number:[id number] Secondary Plan Desc: Secondary Plan Number: Assessment Information [facility] Initial CM Assessment Living Arrangements What is your living Answers: Unknown arrangement? Who do you live with? Discharge Plan Comments Coordination Status Comments Notes: Patient had abcesses drained today in her abdomen. Patients discharge needs still uncertain at this time. Date Signed: 03/30/2017 05:01 PM Electronically Signed By:ABAD Hoff [facility] CM Progress Note CM Note CM Note Notes: STilll unknown if patient will need home IV antibiotics. Yohana here from [facility] and will run benefits if patient should need IV antibiotics on discharge. Patient improving but still unknown whendischarge will occur. Case management will continue to follow. Date Signed: 03/31/2017 05:08 PM Electronically Signed By:ABAD Hoff [facility] CM Progress Note CM Note CM Note Notes: Still unknown what patients needs will be on discharge. Patient very uncomfortable and is very distended. Patient does not have bowel function at this time. Will wait to see what is decided in the morning as to additional interventions. Case management will continue to follow. Date Signed: 03/31/2017 05:13 PM Electronically Signed By:ABAD Hoff [facility] CM Progress Note CM Note CM Note Notes: Prior C/M assessment note made in error and in wrong chart. Prior note was intended for patient chart N [id number]. Date Signed: 03/31/2017 05:48 PM Electronically Signed By:ABAD Hoff [facility] Progress Note CM Note CM Note Notes: Rec'd call from Yohana at [facility] w/pt's benefits info in case pt needs HI. It is not clear yet if pt will need to go home on IV abx's. Met w/pt and shared benefits info and pt is in agreement if she should need IV ABX's at home and would be fine to learn how to give to self. Pt lives at home w/. CM w/f. Date Signed: 04/01/2017 12:50 PM Electronically Signed By:Linda Fam RN [facility] CM Progress Note CM Note CM Note Notes: Pt ready for DC today. Pt will need more 5 more days of IV ABX at DC. [employer] will supply. Pt will likely meet her deductible before [employer] bills but is aware that the cost bfore deductible is $185/day and after is $40/day. [facility] will provide RN. Pt's street address is [address] [place] [address] ,[place] [address]. Her cell is [phone]. DC orders and meds faxed. Date Signed: 04/04/2017 12:23 PM Electronically Signed By:Carly Rosa LCSW Intervention Information
--- NOTE | 2017-04-04 12:24 | ASDISCHSUM ---
Discharge Information Plan Status:IV ABX/Infusion Medically Cleared to Leave: Discharge Date: D/C Disposition: ADT D/C Disposition: Projected Discharge Date:04/04/2017 11:00 AM Transportation at D/C: Discharge Delay Reason: Follow-Up Date:04/04/2017 11:00 AM Discharge Slot: Final Diagnosis: Placement Information Referral Type:Home Infusion Referral ID:[id number] Provider Name:[facility] Special[facility] Infusion Services [facility] Address 1:[address] Address 2: City:[place] Selection Factors: State:[place] Referral Type:*Home Health Care Services Referral ID:[id number] Provider Name[facility] Address 1[address] [facility] [address] Address 2: City:[place] Selection Factors: State:[place] Patient Contact Information Contact Name:WINSTON Relationship: Address: [address] Work Phone: City:[place] [facility][1] Phone: [facility]/Zip Code:[place] [address] Email: Financial Information Financial Class:HMO and PPO Plans Primary Plan Desc: OUT OF STATE PPO Primary Plan Number:[id number] Secondary Plan Desc: Secondary Plan Number: Assessment Information [facility] Initial CM Assessment Living Arrangements What is your living Answers: Unknown arrangement? Who do you live with? Discharge Plan Comments Coordination Status Comments Notes: Patient had abcesses drained today in her abdomen. Patients discharge needs still uncertain at this time. Date Signed: 03/30/2017 05:01 PM Electronically Signed By:ABAD Hoff [facility] CM Progress Note CM Note CM Note Notes: STilll unknown if patient will need home IV antibiotics. Yohana here from [facility] and will run benefits if patient should need IV antibiotics on discharge. Patient improving but still unknown whendischarge will occur. Case management will continue to follow. Date Signed: 03/31/2017 05:08 PM Electronically Signed By:ABAD Hoff [facility] CM Progress Note CM Note CM Note Notes: Still unknown what patients needs will be on discharge. Patient very uncomfortable and is very distended. Patient does not have bowel function at this time. Will wait to see what is decided in the morning as to additional interventions. Case management will continue to follow. Date Signed: 03/31/2017 05:13 PM Electronically Signed By:ABAD Hoff [facility] CM Progress Note CM Note CM Note Notes: Prior C/M assessment note made in error and in wrong chart. Prior note was intended for patient chart N [id number]. Date Signed: 03/31/2017 05:48 PM Electronically Signed By:ABAD Hoff [facility] Progress Note CM Note CM Note Notes: Rec'd call from Yohana at [facility] w/pt's benefits info in case pt needs HI. It is not clear yet if pt will need to go home on IV abx's. Met w/pt and shared benefits info and pt is in agreement if she should need IV ABX's at home and would be fine to learn how to give to self. Pt lives at home w/. CM w/f. Date Signed: 04/01/2017 12:50 PM Electronically Signed By:Linda Fam RN [facility] CM Progress Note CM Note CM Note Notes: Pt ready for DC today. Pt will need more 5 more days of IV ABX at DC. [employer] will supply. Pt will likely meet her deductible before [employer] bills but is aware that the cost bfore deductible is $185/day and after is $40/day. [facility] will provide RN. Pt's street address is [address] [place] [address] ,[place] [address]. Her cell is [phone]. DC orders and meds faxed. Date Signed: 04/04/2017 12:23 PM Electronically Signed By:Carly Rosa LCSW Intervention Information
== END 2017-04-04 12:00 | disposition home health service (06) | DRG 373 ==
LOC: F1N 01:12
PROVIDERS: ADMIT Surgery; ATTEND Surgery
PROC: 3E03329 Introduction of Other Anti-infective into Peripheral Vein, Percutaneous Approach (ICD-10-PCS; 2017-03-30)
PROC: 0W9J30Z Drainage of Pelvic Cavity with Drainage Device, Percutaneous Approach (ICD-10-PCS; principal; 2017-03-30 12:20)
CPT/HCPCS: 74177-PO; 80048-PO; 80076-PO; 81003-PO; 81015-PO; 81025-PO; 83690-PO; 85025-PO; 96365; C1769; J0295; J1335; J1650; J1885; J2250; J2310; J2405; J3010; Q9967

== ENCOUNTER → 2017-05-22 | Outpatient (CLI) | payer BC | LOC: FIMAGING 13:03 | PROVIDERS: ATTEND Nurse Practitioner | DX: N83.8 Other noninflammatory disorders of ovary, fallopian tube and broad ligament (principal); N83.01 Follicular cyst of right ovary; N83.02 Follicular cyst of left ovary ==